=== PATIENT | male | born 1965 | race Two or more races ===

== ENCOUNTER 2024-03-17 21:04 | Emergency (ER) | payer MEDICAID, OTHER ==
[~2024-03-17] VITALS: Ht 162.6 cm; Wt 75.6 kg
[2024-03-18 00:05] VITALS: BP 160/86; TEMP 99
[2024-03-18] MEDS ORDERED: CEFD300C2 PO (00:24)
--- NOTE | 2024-03-18 00:24 | ED.PDOC ---
Eye-HPI HPI Comments Patient is a 58-year-old male presents to the ED complaining of right ear pain. Patient states has been sick over the past week with fevers runny nose and cough he notes over the past 24 hours increasing right ear pain with noted drainage. Denies any known trauma. Denies any altitude changes or travel. Denies hearing changes, chest pain, shortness breath, difficulty breathing, or fevers. Chief Complaint: Earache Time Seen by MD: 21:48 Reviewed Notes: Nurses Notes, Medications, Allergies Allergies: Coded Allergies: NO KNOWN ALLERGIES (Unverified , 03/17/24) Home Meds Active Scripts Cefdinir (Cefdinir) 300 Mg Cap, 1 CAP PO BID for 7 Days, #14 CAP Prov:MANNIE DO 03/18/24 Mode of Arrival: Ambulatory Past Medical History PAST MEDICAL HISTORY: Denies Surgical History: Denies all surgeries Family History Family History: Reviewed,noncontributory to illness Constitutional: denies: chills, diaphoresis, fatigue, fever, malaise, sweats, weakness, others EENTM: reports: ear drainage, ear pain; denies: blurred vision, double vision, ear bleeding, ear discharge, ear ringing, eye pain, eye redness, hearing loss, mouth pain, mouth swelling, nasal discharge, nose bleeding, nose congestion, nose pain, photophobia, tearing, throat pain, throat swelling, voice changes, others Respiratory: denies: cough, hemoptysis, orthopnea, SOB at rest, shortness of breath, SOB with excertion, stridor, wheezing, others Cardiovascular: denies: chest pain, dizzy spells, diaphoresis, Dyspnea on exe rtion, edema, irregular heart beat, left arm pain, lightheadedness, palpitations, PND, syncope, others Gastrointestinal: denies: abdomen distended, abdominal pain, blood streaked bowels, constipated, diarrhea, dysphagia, difficulty swallowing, hematemesis, melena, nausea, poor appetite, poor fluid intake, rectal bleeding, rectal pain, vomiting, others Genitourinary: denies: burning, dysuria, flank pain, frequency, hematuria, incontinence, penile discharge, penile sore, pain, testicle pain, testicle swelling, urgency, others Neurological: denies: dizziness, fainting, headache, left sided numbness, left sided weakness, numbness, paresthesia, pre-existing deficit, right sided numbness, right sided weakness, seizure, speech problems, tingling, tremors, weakness, others Musculoskeletal: denies: back pain, gout, joint pain, joint swelling, muscle pain, muscle stiffness, neck pain, others Integumetry: denies: bruises, change in color, change in hair/nails, dryness, laceration, lesions, lumps, rash, wounds, others Allergic/Immunocompromised: denies: Difficulty Healing, Frequent Infections, Hives, Itching, others Hematologic/Lymphatic: denies: anemia, blood clots, easy bleeding, easy bruising, swollen glands, others Endocrine: denies: excessive hunger, excessive sweating, excessive thirst, excessive urination, flushing, intolerance to cold, intolerance to heat, unexplained weight gain, unexplained weight loss, others Psychiatric: denies: anxiety, bipolar disorder, depression, hopeless, panic disorder, schizophrenia, sleepless, suicidal, others Physical Exam General Appearance: No Apparent Distress, Normal HEENT: Pharyngeal Erythema, TM Abnormal (R) (TM intact noted bulging with it erythema noted serosanguineous drainage canal without edema erythema. Left TM Within normal limits) Neck: Full Range of Motion, Non-Tender Respiratory: Lungs Clear, No Respiratory Distress, Normal Breath Sounds Cardiovascular: No Murmur, Normal Peripheral Pulses, Regular Rate/Rhythm Breast Exam: Deferred Gastrointestinal: Non Tender, Soft Genitalia: Deferred Pelvic: Deferred Rectal: Deferred Extremities: Normal capillary refill, Normal inspection, Normal range of motion, Non-tender, No pedal edema Musculoskeletal : Apperance: Normal Neurologic: Alert, animal biologist II-XII nml as Tested, No Motor Deficits, Normal Affect, Normal Mood, No Sensory Deficits Cerebellar Function: Normal Reflexes: Normal Skin: Dry, Normal Color, Warm Lymphatic: No Adenopathy Was a procedure done? Was a procedure done?: No EENT DIFF Eye: N/A Ear: Cerumen Impaction, Foreign Body, Otitis Externa, Barotrauma, Otitis Media, Perforation X-Ray, Labs, Meds, VS Vital Signs Date Time Temp Pulse Resp B/P (MAP) Pulse Ox O2 Delivery O2 Flow Rate FiO2 03/18/24 01:02 79 16 98 Room Air 03/18/24 00:05 99.0 79 16 160/86 (110) 98 99.0 03/17/24 21:44 98.6 85 18 162/83 (109) 97 Current Medications Medications (Trade) Dose Ordered Sig/Venkat Route Start Time Stop Time Status Last Admin Dexamethasone Sodium Phosphate (Decadron Injection) 10 mg ONCE ONCE IM 03/18/24 00:30 03/18/24 00:31 DC 03/18/24 00:39 X-Ray, Labs, Meds, VS Comment Patient given Decadron 10 mg IM he reports improvement in pain requesting discharge at this time. Likely bacterial script cefdinir. Advised to follow up with his PCP in 2-3 days for re-evaluation of the ear if no improvement. Advised to rest increase p.o. fluids with electrolytes [id number] Motrin or Tylenol as needed for the pain or fever. Patient agrees with discharge plan of care. Time of 1ST Reevaluation: 00:15 Reevaluation 1ST: Improved Patient Education/Counseling: Diagnosis, Treatment, Prognosis, Need For Follow Up Family Education/Counseling: No Family Present Departure 1 Departure Time of Disposition: 00:23 Impression: Primary Impression: Otitis media Qualified Codes: H66.001 - Acute suppurative otitis media without spontaneous rupture of ear drum, right ear Disposition: 01 HOME / SELF CARE / HOMELESS Condition: Stable e-Prescriptions Cefdinir (Cefdinir) 300 Mg Cap 1 CAP PO BID for 7 Days, #14 CAP Prov: MANNIE DO 03/18/24 Discharged With: Self Critical Care Note Critical Care Time?: No Stability Stability form required: MANNIE Simon Mar 18, 2024 00:24
[2024-03-18] MEDS: DexAMETHasone SOD PHOS 10MG/1ML VIAL INJ IM ONE (00:39)
[2024-03-18 01:02] VITALS: PULSE 79; RESP 16; O2SAT 98
== END 2024-03-18 01:03 | disposition home or self-care (01) ==
LOC: ER 21:04
DX: H66.91 Otitis media, unspecified, right ear (principal)
CPT/HCPCS: 96372; 99283; J1100